=== PATIENT | male | born 2000 | race Caucasian/White ===

== ENCOUNTER 2023-10-25 19:44 | Emergency (ER) | payer OTHER, SELFPAY ==
[2023-10-25 19:58] VITALS: BP 180/100; PULSE 94; RESP 16; TEMP 36.7; O2SAT 96; BMI 43.3
[2023-10-25 20:28] LABS: Internal Control Within Normal Limits; Strep A Antigen Screen Negative
[2023-10-25 20:31] LABS: Influenza Virus A Antigen Negative; Influenza Virus B Antigen Negative; Internal Control Within Normal Limits; SARS-CoV-2 Ag NEGATIVE (NEGATIVE)
--- NOTE | 2023-10-25 23:28 | ED.URI1 ---
HPI - URI/Sore Throat General Chief Complaint: Upper Respiratory Infection Stated Complaint: Fever Cough Time Seen by Provider: 10/25/23 23:23 Source: patient Limitations: no limitations History of Present Illness HPI Narrative: ill all week with URI symptoms. fever a couple of days ago. Today weak and light headed. No headache. Productive cough but not short of breath. No nausea or vomiting Related Data Home Medications Medication Instructions Recorded Confirmed No Known Home Medications 10/25/23 10/25/23 Allergies Allergy/AdvReac Type Severity Reaction Status Date / Time No Known Drug Allergies Allergy Verified 10/25/23 20:02 Review of Systems ROS Status of ROS 10 or more systems reviewed and unremarkable except as noted in history and below [facility] Social History Smoking status: Current every day smoker Exam Constitutional Vital Signs, click to edit/add: Last Vital Signs Temp 98.1 F 10/25/23 19:58 Pulse 94 H 10/25/23 19:58 Resp 16 10/25/23 19:58 BP 140/98 H 10/26/23 00:42 Pulse Ox 96 10/25/23 19:58 O2 Del Method Room Air 10/25/23 19:58 Common normals: no apparent distress, average body habitus, oriented x3, no limitations, healthy appearing, alert and well nourished [facility] Common normals: normocephalic and head/scalp atraumatic Eye Common normals: PERRL, EOMs intact bilaterally and conjunctivae normal Respiratory Common normals: normal respiratory effort, no retractions and no use of accessory muscles Cardio Common normals: regular rate, regular rhythm, S1 normal heart sound and S2 normal heart sound GI Common normals: Normal to inspection, nondistended, normoactive bowel sounds present, soft to palpation and non-tender Extremity Common normals: normal to inspection and full ROM Neuro Common normals: oriented x3, CN's II-XII intact bilaterally, moves all extremities and no focal motor deficits Psych Appearance: grossly normal Course Vital Signs Vital signs: Vital Signs Temperature 98.1 F 10/25/23 19:58 Pulse Rate 94 H 10/25/23 19:58 Respiratory Rate 16 10/25/23 19:58 Blood Pressure 180/100 H 10/25/23 19:58 Pulse Oximetry 96 10/25/23 19:58 Oxygen Delivery Method Room Air 10/25/23 19:58 Temperature 98.1 F 10/25/23 19:58 Pulse Rate 94 H 10/25/23 19:58 Respiratory Rate 16 10/25/23 19:58 Blood Pressure 140/98 H 10/26/23 00:42 Pulse Oximetry 96 10/25/23 19:58 Oxygen Delivery Method Room Air 10/25/23 19:58 MDM - URI/Sore Throat MDM Narrative Medical decision making narrative: ill for past week with gen. nonspecific weakness, cough and feeling light headed. Not short of breath. Exam neg. Cxray clear. CBC, BMP WNL. UA with evidence of dehydration. Patient hydrated in the department. Flu and COVID19 swab neg.Discharged home in stable condition Lab Data Labs: Lab Results 10/25/23 10/26/23 10/26/23 Range/Units 20:05 00:15 01:35 WBC 5.2 (4.0-11.0) 10^3/uL RBC 5.12 (4.70-6.10) 10^6/uL Hgb 15.0 (14.0-18.0) g/dL Hct 45.4 (42.0-54.0) % MCV 88.7 (80.0-94.0) fL MCH 29.3 (25.9-34.0) pg MCHC 33.0 (29.9-35.2) g/dL RDW 12.6 (11.0-15.0) % Plt Count 224 (150-450) 10^3/uL MPV 10.2 (9.5-13.5) fL Neut % (Auto) 50.9 (43.0-75.0) % Lymph % (Auto) 34.2 (20.5-60.0) % Kerr % (Auto) 12.6 H (1.7-12.0) % Eos % (Auto) 1.5 (0.9-7.0) % Baso % (Auto) 0.4 (0.2-2.0) % Neut # (Auto) 2.6 (1.4-6.5) 10^3/uL Lymph # (Auto) 1.8 (1.2-3.8) 10^3/uL Kerr # (Auto) 0.7 (0.3-0.8) 10^3/uL Eos # (Auto) 0.1 (0.0-0.7) 10^3/uL Baso # (Auto) 0.0 (0.0-0.1) 10^3/uL Abs Immat Gran (auto) 0.02 (0.00-0.03) 10^3/uL Imm/Tot Granulo (auto) 0.4 (0.0-0.5) % Sodium 140 (136-145) mmol/L Potassium 3.8 (3.5-5.1) mmol/L Chloride 104 (98-107) mmol/L Carbon Dioxide 22.4 (21.0-32.0) mmol/L Anion Gap 17.4 BUN 11.0 (7.0-18.0) mg/dL Creatinine 0.80 (0.70-1.30) mg/dL Est GFR ( Amer) >60 (>=60) Est GFR (Non-Af Amer) >60 (>=60) BUN/Creatinine Ratio 13.8 Glucose 88 (74-106) mg/dL Lactate 1.3 (0.4-2.0) mmol/L Calcium 8.4 L (8.5-10.1) mg/dL Total Bilirubin 0.7 (0.2-1.0) mg/dL AST 33 (15-37) U/L ALT 75 H (16-63) U/L Alkaline Phosphatase 57 (46-116) U/L Total Protein 8.4 H (6.4-8.2) g/dL Albumin 3.8 (3.4-5.0) g/dL Globulin 4.6 g/dL Albumin/Globulin Ratio 0.8 Urine Color Yellow (YELLOW) Urine Clarity Clear (CLEAR) Urine pH 6.0 (5.0-9.0) Ur Specific [place] >=1.030 A (1.005-1.025) Urine Protein Negative (NEG/TRACE) mg/dL Urine Glucose (UA) Negative (NEGATIVE) mg/dL Urine Ketones Negative (NEGATIVE) mg/dL Urine Occult Blood Negative (NEGATIVE) Urine Nitrite Negative (NEGATIVE) Urine Bilirubin Negative (NEGATIVE) Urine Urobilinogen 0.2 (0.2-1.0) EU/dL Ur Leukocyte Esterase Negative (NEGATIVE) Monoscreen Negative (NEGATIVE) Influenza Type A Ag Negative Influenza Type B Ag Negative SARS-CoV-2 Ag (CV2AG) Negative (NEGATIVE) Streptococcus Screen Negative Discharge Plan Discharge Chief Complaint: Upper Respiratory Infection Clinical Impression: URI (upper respiratory infection), Dehydration Patient Disposition: Home, Self-Care Prescriptions / Home Meds: No Action No Known Home Medications Instructions: Dehydration (ED), Upper Respiratory Infection (ED) Additional Instructions: follow up with your doctor in 1-2 days for recheck Stand Alone Forms: Portal Instructions Referrals: Physician,Non-Staff, MD [Primary Care Provider] - 1 week
--- NOTE | 2023-10-25 23:30 | XR_ITS ---
[facility] [id number] Patient Name: CARLY ODELL MRN: [id number] date: 2000 Sex: M Assigned Patient Location: ER Current Patient Location: ER Accession/Order Number: [id number] Exam Date: 10/25/2023 23:38 Report Date: 10/26/2023 20:55 At the request of: BILL RENEE Procedure: XR chest 2V XR CHEST AP/LAT 10/26/2023 12:20 AM EST CLINICAL INDICATION: Flulike symptoms COMPARISON: None. TECHNIQUE: PA and lateral views of the chest. FINDINGS: There are no tubes or implants noted. The cardiomediastinal silhouette and pulmonary vasculature are within normal limits. Decreased lung volumes. The lungs are clear without evidence of consolidation. No pneumothorax or pleural effusion. Osseous structures and soft tissues are within normal limits. XR/XR chest 2V IMPRESSION: No acute cardiopulmonary abnormality. Electronically authenticated by: MAYELA GTZ Date: 10/26/2023 20:55
[2023-10-26 00:21] LABS: Basophils Percent Auto 0.4 % (0.2-2.0); Eosinophils Absolute Auto 0.1 10^3/uL (0.0-0.7); Eosinophils Percent Auto 1.5 % (0.9-7.0); Hematocrit 45.4 % (42.0-54.0); Immature Granulocytes Abs Auto 0.02 10^3/uL (0.00-0.03); Immature Granulocytes Pct Auto 0.4 % (0.0-0.5); Lymphocytes Absolute Auto 1.8 10^3/uL (1.2-3.8); Lymphocytes Percent Auto 34.2 % (20.5-60.0); Mean Corpuscular Hemoglobin 29.3 pg (25.9-34.0); Mean Corpuscular Volume 88.7 fL (80.0-94.0); Mean Platelet Volume 10.2 fL (9.5-13.5); Monocytes Absolute Auto 0.7 10^3/uL (0.3-0.8); Monocytes Percent Auto 12.6 % (1.7-12.0); Neutrophils Absolute Auto 2.6 10^3/uL (1.4-6.5); Neutrophils Percent Auto 50.9 % (43.0-75.0); Platelet Count 224 10^3/uL (150-450); Red Blood Count 5.12 10^6/uL (4.70-6.10); Red Cell Distribution Width 12.6 % (11.0-15.0); White Blood Count 5.2 10^3/uL (4.0-11.0)
[2023-10-26] MEDS: 0.9 % SODIUM CHLORIDE 1,000 ML 999 ML IV (00:40)
[2023-10-26 00:41] LABS: Alanine Aminotransferase 75 U/L (16-63); Albumin Globulin Ratio 0.8; Albumin Level 3.8 g/dL (3.4-5.0); Alkaline Phosphatase 57 U/L (46-116); Anion Gap 17.4; Aspartate Amino Transferase 33 U/L (15-37); BUN Creatinine Ratio 13.8; Bilirubin Total 0.7 mg/dL (0.2-1.0); Calcium 8.4 mg/dL (8.5-10.1); Carbon Dioxide 22.4 mmol/L (21.0-32.0); Chloride 104 mmol/L (98-107); Estimated GFR (African America >60 (>=60); Estimated GFR (Non-African Ame >60 (>=60); Globulin 4.6 g/dL; Glucose 88 mg/dL (74-106); Potassium 3.8 mmol/L (3.5-5.1); Sodium 140 mmol/L (136-145); Total Protein 8.4 g/dL (6.4-8.2)
[2023-10-26 00:42] VITALS: BP 140/98
[2023-10-26 00:55] LABS: Mono Screen NEGATIVE (NEGATIVE)
[2023-10-26 00:56] LABS: Lactate/Lactic Acid 1.3 mmol/L (0.4-2.0)
[2023-10-26 01:48] LABS: Bilirubin Urine NEGATIVE (NEGATIVE); Blood Urine NEGATIVE (NEGATIVE); Clarity Urine CLEAR (CLEAR); Color Urine YELLOW (YELLOW); Glucose Urine UA NEGATIVE (NEGATIVE); Ketones Urine NEGATIVE (NEGATIVE); Leukocyte Esterase Urine NEGATIVE (NEGATIVE); Nitrite Urine NEGATIVE (NEGATIVE); Protein Urine NEGATIVE (NEG/TRACE); Specific Gravity Urine >=1.030 (1.005-1.025); Urobilinogen Urine 0.2 EU/dL (0.2-1.0)
[2023-10-26 01:51] LABS: Urine Microscopic Indicated NO
== END 2023-10-26 02:38 | disposition home or self-care (01) ==
PROVIDERS: Emergency Provider Internal Medicine
DX: J06.9 Acute upper respiratory infection, unspecified (principal); E86.0 Dehydration; Z20.822 Contact with and (suspected) exposure to COVID-19; F17.210 Nicotine dependence, cigarettes, uncomplicated
CPT/HCPCS: 36415; 71046; 80053; 81003; 83605; 85025; 86308; 87070; 87804; 87811; 87880; 99284